=== PATIENT | female | born 1985 | race Hispanic/Latino ===

== ENCOUNTER 2018-09-01 12:27 | Inpatient (IN) | payer OTHER ==
[2018-09-01 14:09] LABS: Hematocrit 33.5 % (30.3-42.9); Hemoglobin 11.8 gm/dl (10.1-14.3); Mean Corpuscular HGB Conc 35 % (30-34); Mean Corpuscular Volume 90 fl (79-97); Platelet Count 252 K/mm3 (140-440); Red Blood Count 3.72 M/mm3 (3.65-5.03); Red Cell Distribution Width 14.3 % (13.2-15.2)
[2018-09-01 14:20] LABS: Alanine Aminotransferase 34 units/L (7-56); Uric Acid 4.2 mg/dL (3.5-7.6)
[2018-09-01] MEDS ORDERED: BRETHINE IVP PRN (14:33)
[2018-09-01] MEDS ORDERED: XYLOCAINE 2% INFILTRATI ONE (14:33)
[2018-09-01] MEDS ORDERED: MINERAL OIL PO PRN (14:33)
[2018-09-01] MEDS ORDERED: BRETHINE SUB-Q PRN (14:33)
[2018-09-01] MEDS ORDERED: STADOL IV PRN (14:33)
[2018-09-01] MEDS ORDERED: NARCAN 0.4 MG/1 ML IV PRN (14:33)
[2018-09-01] MEDS ORDERED: ZOFRAN IV PRN (14:33)
--- NOTE | 2018-09-01 14:37 | History and Physical Report ---
History of Present Illness Date of examination: 09/01/18 Date of admission: 09/01/18 12:27 Chief complaint: Induction of labor History of present illness: Pt is a 33yo WF EDC 09/06/18; EGA 39 2/7 weeks presents from [facility] for induction of labor due to elevated BPs' and Oligohydramnios. She received care at [facility] since 10 weeks and co-managed by [facility] for Bipolar disorder. records are available and GBS is Negative. Past History Past Medical History: other (Bipolar disorder) Past Surgical History: no surgical history [employer] History: abnormal PAP smear Family/Genetic History: none Social history: no significant social history, - Obstetrical History Expected Date of Delivery: 09/06/18 Actual Gestation: 39 Week(s) 2 Day(s) : 2 Medications and Allergies Allergies Allergy/AdvReac Type Severity Reaction Status Date / Time Penicillins Allergy Hives Verified 09/01/18 13:06 sulfacetamide Allergy Itching Verified 09/01/18 13:07 [From Sulfamide] Home Medications Medication Instructions Recorded Confirmed Last Taken Type Pnv Plus Multivit Tab 1 tab PO DAILY 09/01/18 09/01/18 08/31/18 History 1 Review of Systems All systems: negative - Vital Signs Vital signs: Vital Signs Temp 97.6 F 09/01/18 13:54 Temp Pulse Resp BP Pulse Ox 97.6 F 09/01/18 13:54 - Physical Exam Cardiovascular: Regular rate Lungs: Positive: Clear to auscultation Abdomen: Positive: normal appearance Genitourinary (Female): Positive: normal external genitalia Vagina: Positive: normal moisture Uterus: Positive: enlarged Extremities: Positive: normal - Obstetrical FHR: category 1 Uterine Contraction Monitor Mode: External Cervical Dilatation: 0.5 (per nurse) Cervical Effacement Percentage: 50 (per nurse) Uterine Contraction Pattern: Irregular Results Result Diagrams: 09/01/18 13:37 09/01/18 13:37 Abnormal lab results 09/01/18 09/01/18 Range/Units 13:37 13:37 MCHC 35 H (30-34) % Creatinine 0.4 L (0.7-1.2) mg/dL Lactate Dehydrogenase 228 H (91-180) units/L All other labs normal. Ultrasound: report reviewed Assessment and Plan - Patient Problems (1) 39 weeks gestation of Onset Date: 09/01/18 Current Visit: Yes Status: Acute Plan to address problem: A: IUP @ 39 2/7 weeks Gestational hypertension Oligohydramnios Bipolar disorder P: Admit to L&D for cervidil/pitocin induction of labor Obtain PIH labs (2) Oligohydramnios Onset Date: 09/01/18 Current Visit: Yes Status: Acute Qualifiers: Fetus number: single or unspecified fetus Trimester: third trimester Qualified Code(s): O41.03X0 - Oligohydramnios, third trimester, not applicable or unspecified (3) Bipolar 1 disorder Onset Date: 09/01/18 Current Visit: Yes Status: Acute
[2018-09-01 14:53] LABS: Bilirubin,Urine NEG (Negative); Blood,Urine SM (Negative); Color,Urine Amber (Yellow); Mucus,Urine 1+ /HPF
[2018-09-01] MEDS ORDERED: PITOCin/NS 30 UNIT/500ML 30 UNITS/500 ML BAG IV SCH (15:00)
[2018-09-01] MEDS ORDERED: PITOCin/NS 20 UNIT/1000ML DRIP 20 UNITS/1,000 ML BAG IV SCH (15:00)
[2018-09-01] MEDS ORDERED: CERVIDIL VG ONE (15:33)
[2018-09-01] MEDS: LACTATED RINGERS 1,000 ML IV SCH (17:06)
[2018-09-01] MEDS ORDERED: TYLENOL PO ONE (20:43)
[2018-09-01] MEDS ORDERED: AMBIEN PO PRN (22:00)
[2018-09-02] MEDS ORDERED: CERVIDIL VG ONE (03:09)
[2018-09-02] MEDS: LACTATED RINGERS 1,000 ML IV SCH (05:46)
[2018-09-02] MEDS: SUBLIMAZE IV PRN ×5 (09:30→18:11)
--- NOTE | 2018-09-02 09:52 | Progress Note ---
Assessment and Plan - Patient Problems (1) 39 weeks gestation of Onset Date: 09/01/18 Current Visit: Yes Status: Acute Plan to address problem: A: IUP @ 39 3/7 weeks Gestational hypertension Oligohydramnios Bipolar disorder P: Will continue with cervidil/pitocin induction of labor Expectant vaginal delivery (2) Oligohydramnios Onset Date: 09/01/18 Current Visit: Yes Status: Acute Qualifiers: Fetus number: single or unspecified fetus Trimester: third trimester Qualified Code(s): O41.03X0 - Oligohydramnios, third trimester, not applicable or unspecified (3) Bipolar 1 disorder Onset Date: 09/01/18 Current Visit: Yes Status: Acute Subjective - Subjective Date of service: 09/02/18 Principal diagnosis: IUP @ 39 3/7 weeks; Oligohydramnios Interval history: Pt is a 33yo WF EDC 09/06/18; EGA 39 3/7 weeks presents from [facility] for induction of labor due to elevated BPs' and Oligohydramnios. She received care at [facility] since 10 weeks and co-managed by [facility] for Bipolar disorder. She received cervidil last night and currently theresa q 3-5 mins. Patient reports: movement normal, contractions, no new complaints, no loss of fluid, no vaginal bleeding Objective - Vital Signs Vital Signs: Vital Signs - 12hr 09/01/18 09/01/18 09/01/18 22:20 23:19 23:20 Temperature Pulse Rate 85 85 85 Respiratory Rate Blood Pressure 158/79 173/98 Blood Pressure 173/98 [Right] 09/02/18 09/02/18 09/02/18 01:19 02:33 03:37 Temperature Pulse Rate 89 81 Respiratory 18 Rate Blood Pressure 179/92 149/79 Blood Pressure [Right] 09/02/18 09/02/18 09/02/18 03:57 04:07 05:36 Temperature Pulse Rate 87 77 Respiratory 16 Rate Blood Pressure 142/84 169/95 Blood Pressure [Right] 09/02/18 09/02/18 09/02/18 07:37 08:41 09:29 Temperature 98.6 F Pulse Rate 78 72 Respiratory 16 Rate Blood Pressure 135/65 146/84 Blood Pressure [Right] 09/02/18 09:30 Temperature Pulse Rate Respiratory 18 Rate Blood Pressure Blood Pressure [Right] - Exam Uterus: Present: normal FHR: category 1 Uterine Contraction Monitor Mode: External Cervical Dilatation: 2.5 (per nurse) Cervical Effacement Percentage: 50 (per nurse) Uterine Contraction Pattern: Regular Uterine Tone Measurement Phase: Contraction Uterine Contraction Intensity: Mild - Labs Labs: Abnormal Labs 09/01/18 09/01/18 09/01/18 13:00 13:37 13:37 MCHC 35 H Creatinine 0.4 L Lactate Dehydrogenase 228 H Ur Specific [place] 1.036 H Urine WBC (Auto) 8.0 H Laboratory Results - last 24 hr 09/01/18 09/01/18 09/01/18 13:00 13:37 13:37 WBC 8.7 RBC 3.72 Hgb 11.8 Hct 33.5 MCV 90 MCH 32 MCHC 35 H RDW 14.3 Plt Count 252 Creatinine 0.4 L Estimated GFR > 60 Uric Acid 4.2 AST 39 ALT 34 Lactate Dehydrogenase 228 H Urine Color Loni Urine Turbidity Clear Urine pH 5.0 Ur Specific [place] 1.036 H Urine Protein 30 mg/dl Urine Glucose (UA) Neg Urine Ketones Neg Urine Blood Sm Urine Nitrite Neg Urine Bilirubin Neg Urine Urobilinogen 4.0 Ur Leukocyte Esterase Neg Urine WBC (Auto) 8.0 H Urine RBC (Auto) 9.0 U Epithel Cells (Auto) 7.0 Urine Mucus 1+ Blood Type Antibody Screen 09/01/18 13:37 WBC RBC Hgb Hct MCV MCH MCHC RDW Plt Count Creatinine Estimated GFR Uric Acid AST ALT Lactate Dehydrogenase Urine Color Urine Turbidity Urine pH Ur Specific [place] Urine Protein Urine Glucose (UA) Urine Ketones Urine Blood Urine Nitrite Urine Bilirubin Urine Urobilinogen Ur Leukocyte Esterase Urine WBC (Auto) Urine RBC (Auto) U Epithel Cells (Auto) Urine Mucus Blood Type A POSITIVE Antibody Screen Negative
[2018-09-02] MEDS ORDERED: TYLENOL PO PRN ×2 (10:00→22:18)
[2018-09-02] MEDS ORDERED: NARCAN 2 MG/2 ML IV PRN (19:41)
--- NOTE | 2018-09-02 19:43 | Anesthesia Consultation ---
Anesthesia Consult and Med Hx - Airway Anesthetic Teeth Evaluation: Good ROM Head & Neck: Adequate Mental/Hyoid Distance: Adequate Mallampati Class: Class II Intubation Access Assessment: Probably Good - Pulmonary Exam CTA: Yes - Cardiac Exam Cardiac Exam: RRR - Pre-Operative Health Status ASA Pre-Surgery Classification: ASA2 Proposed Anesthetic Plan: Epidural - Pulmonary Hx Asthma: Yes - Cardiovascular System Hx Hypertension: No - Central Nervous System Hx Seizures: No Hx Psychiatric Problems: No - Endocrine Hx Renal Disease: No Hx Hypothyroidism: No Hx Hyperthyroidism: No - Hematic Hx Anemia: No Hx Sickle Cell Disease: No - Other Systems Hx Alcohol Use: No
--- NOTE | 2018-09-02 19:43 | Anesthesia Day of Surgery ---
Anesthesia Day of Surgery - Day of Surgery Patient Examined: Yes Patient H&P Reviewed: Yes Patient is NPO: Yes Beta Blockers: No Cardiac Clearance: No Pulmonary Clearance: No Ozzie's Test: N/A
[2018-09-02] MEDS ORDERED: MARCAINE 0.25% INFILTRATI ONE (19:46)
[2018-09-02] MEDS ORDERED: fentaNYL-BUPIV 2 MCG/ML-0.125% 200 MCG/100 ML BAG EPIDURAL SCH (20:00)
[2018-09-02] MEDS ORDERED: DULCOLAX PR PRN (22:18)
[2018-09-02] MEDS ORDERED: ZOFRAN IV PRN (22:18)
[2018-09-02] MEDS ORDERED: LANSINOH TP PRN (22:18)
[2018-09-02] MEDS ORDERED: MILK OF MAGNESIA PO PRN (22:18)
[2018-09-02] MEDS ORDERED: PHENERGAN PO PRN (22:18)
[2018-09-02] MEDS ORDERED: PHENERGAN PR PRN (22:18)
[2018-09-02] MEDS ORDERED: BENADRYL PO PRN (22:18)
[2018-09-02] MEDS ORDERED: TUCKS PAD TP PRN (22:18)
--- NOTE | 2018-09-02 22:18 | Procedure Note ---
OB Delivery Note - Delivery Date of Delivery: 09/02/18 Surgeon: PAVAN MCCRACKEN Estimated blood loss: 100cc - Vaginal Delivery presentation: vertex Delivery position: OA Intrapartum events: PROM->1hr before delivery, meconium Delivery induction: cervidil Delivery augmentation: rupture of membranes, pitocin Delivery monitor: external FHT, external uterine Route of delivery: Delivery placenta: spontaneous Delivery cord: 3 umbilical vessels Episiotomy: none Delivery laceration: none Anesthesia: epidural Delivery comments: delivered OA and placed on Mom's chest for [id number] bonding and delayed cord clamping, cut by Dad - A at 1 minute: 8 at 5 minutes: 9 Infant Gender: Male (2680gms)
--- NOTE | 2018-09-02 22:31 | Post Anesthesia Evaluation ---
- Post Anesthesia Evaluation Patient Participated: Yes Airway Patent: Yes Stable Respiratory Function: Yes Nausea/Vomiting: No Temp > 96.8F: No Pain Manageable: Yes Adequeate Hydration: Yes Anesthesia Complications: No Block Receding Appropriately: Yes Patient on Ventilator: No
[2018-09-02] MEDS ORDERED: SODIUM CHLORIDE FLUSH SYRINGE 10 ML IV PRN (23:00)
[2018-09-02] MEDS ORDERED: PITOCin/NS 20 UNIT/1000ML DRIP 20 UNITS/1,000 ML BAG IV SCH (23:00)
[2018-09-03] MEDS: NORCO 5/325 PO PRN ×2 (01:10→06:48)
[2018-09-03] MEDS: IBUPROFEN PO SCH ×5 (01:14→23:30)
--- NOTE | 2018-09-03 08:57 | Progress Note ---
Assessment and Plan - Patient Problems (1) 39 weeks gestation of Onset Date: 09/01/18 Current Visit: Yes Status: Resolved (2) Oligohydramnios Onset Date: 09/01/18 Current Visit: Yes Status: Resolved Qualifiers: Fetus number: single or unspecified fetus Trimester: third trimester Qualified Code(s): O41.03X0 - Oligohydramnios, third trimester, not applicable or unspecified (3) Bipolar 1 disorder Onset Date: 09/01/18 Current Visit: Yes Status: Chronic (4) (normal spontaneous vaginal delivery) Onset Date: 09/03/18 Current Visit: Yes Status: Resolved Plan to address problem: A: S/P - PPD #1 Doing well Asymptomatic anemia - stable P: May go home tomorrow. (5) Acute blood loss anemia Onset Date: 09/03/18 Current Visit: Yes Status: Resolved Subjective - Subjective Date of service: 09/03/18 Principal diagnosis: s/p - PPD #1 Interval history: Pt is feeling well without complaints. Bleeding improved. Patient reports: appetite normal, voiding normally, pain well controlled, flatus, ambulating normally, no dizzy ambulation, no nauseated : doing well, bottle feeding Objective - Vital Signs Latest vital signs: Vital Signs Temp Pulse Resp BP BP Pulse Ox 09/03/18 07:49 20 09/03/18 05:48 98.2 F 89 20 132/74 96 09/03/18 00:50 98.0 F 09/03/18 00:45 125 H 142/73 98 09/02/18 22:50 96 H 168/80 09/02/18 22:26 87 147/76 09/02/18 21:41 86 137/93 09/02/18 21:26 83 125/72 09/02/18 21:11 46 L 80 L 09/02/18 21:10 80 L 09/02/18 21:04 95 H 95 09/02/18 20:59 69 100 09/02/18 20:55 77 94 09/02/18 20:54 69 98 09/02/18 20:49 89 99 09/02/18 20:44 68 99 09/02/18 20:41 72 107/49 09/02/18 20:39 93 H 98 09/02/18 20:34 75 99 09/02/18 20:29 98 H 98 09/02/18 20:27 89 108/68 09/02/18 20:24 64 96 09/02/18 20:19 90 97 09/02/18 20:17 83 111/57 09/02/18 20:14 93 H 93 09/02/18 20:11 77 83/49 09/02/18 20:09 80 94 09/02/18 20:08 73 87/51 09/02/18 20:05 76 94/50 09/02/18 20:04 85 92 09/02/18 20:03 86 109/64 09/02/18 20:02 82 92 09/02/18 19:59 60 93 09/02/18 19:57 94 H 143/88 09/02/18 19:56 79 92 09/02/18 19:54 101 H 97 09/02/18 19:49 110 H 97 09/02/18 19:44 107 H 97 09/02/18 19:29 110 H 139/93 09/02/18 17:40 136/74 09/02/18 17:00 97.8 F 18 09/02/18 11:38 82 147/77 09/02/18 11:35 97.2 F L 09/02/18 09:30 18 09/02/18 09:29 72 146/84 Intake and Output 09/02/18 09/03/18 09/03/18 22:59 06:59 14:59 Intake Total 480 Output Total 200 1000 Balance -200 -520 Intake: Oral 480 Output: Urine 200 1000 Uretheral (Mazariegos) 200 Void 1000 Other: Total, Intake Amount 240 Total, Output Amount 300 # Voids Void 3 Estimated Blood Loss 200 - Exam Abdomen: Present: normal appearance, soft Uterus: Present: normal, firm, fundal height below umbilicus Extremities: Present: normal - Labs Labs: Laboratory Tests 09/01/18 09/01/18 09/01/18 13:00 13:37 13:37 WBC 8.7 RBC 3.72 Hgb 11.8 Hct 33.5 MCV 90 MCH 32 MCHC 35 H RDW 14.3 Plt Count 252 Creatinine 0.4 L Estimated GFR > 60 Uric Acid 4.2 AST 39 ALT 34 Lactate Dehydrogenase 228 H Urine Color Loni Urine Turbidity Clear Urine pH 5.0 Ur Specific [place] 1.036 H Urine Protein 30 mg/dl Urine Glucose (UA) Neg Urine Ketones Neg Urine Blood Sm Urine Nitrite Neg Urine Bilirubin Neg Urine Urobilinogen 4.0 Ur Leukocyte Esterase Neg Urine WBC (Auto) 8.0 H Urine RBC (Auto) 9.0 U Epithel Cells (Auto) 7.0 Urine Mucus 1+ RPR Blood Type Antibody Screen 09/01/18 09/01/18 09/03/18 13:37 18:00 10:31 WBC RBC Hgb 8.2 L D Hct 24.0 L D MCV MCH MCHC RDW Plt Count Creatinine Estimated GFR Uric Acid AST ALT Lactate Dehydrogenase Urine Color Urine Turbidity Urine pH Ur Specific [place] Urine Protein Urine Glucose (UA) Urine Ketones Urine Blood Urine Nitrite Urine Bilirubin Urine Urobilinogen Ur Leukocyte Esterase Urine WBC (Auto) Urine RBC (Auto) U Epithel Cells (Auto) Urine Mucus RPR Nonreactive Blood Type A POSITIVE Antibody Screen Negative
--- NOTE | 2018-09-03 09:13 | Discharge Summary ---
Providers - Providers Date of Admission: 09/01/18 12:27 Date of discharge: 09/04/18 Attending physician: PAVAN MCCRACKEN Primary care physician: PAVAN MCCRACKEN Hospitalization Reason for admission: induction of labor, IUP at term, other (Oligohydramnios) Delivery: Episiotomy: none Laceration: none Other procedures: none complications: none Discharge diagnosis: IUP at term delivered [place] baby: male Hospital course: Unremarkable. Condition at discharge: Good Disposition: DC-01 TO HOME OR SELFCARE - Discharge Diagnoses (1) 39 weeks gestation of Status: Resolved (2) Oligohydramnios Status: Resolved Qualifiers: Fetus number: single or unspecified fetus Trimester: third trimester Qualified Code(s): O41.03X0 - Oligohydramnios, third trimester, not applicable or unspecified (3) Bipolar 1 disorder Status: Chronic (4) (normal spontaneous vaginal delivery) Status: Resolved Plan - Discharge Medications Prescriptions: Ferrous Sulfate [Feosol 325 MG tab] 325 mg PO BID #60 tablet Ibuprofen [Motrin 600 MG tab] 600 mg PO Q6HR #30 tablet Vit-Fe Fumar-FA [ Vitamin] 1 each PO QDAY #30 tablet - Provider Discharge Summary Activity: routine, no sex for 6 weeks, no heavy lifting 4 weeks, no strenuous exercise Diet: routine Instructions: routine Additional instructions: [] Smoking cessation referral if applicable(refer to patient education folder for contact #) [] Refer to [facility]'s [facility] Booklet Call your doctor immediately for: * Fever > 100.5 * Heavy vaginal bleeding ( >1 pad per hour) * Severe persistent headache * Shortness of breath * Reddened, hot, painful area to leg or breast * Drainage or odor from incision. * Keep incision clean and dry at all times and follow doctor's instructions regarding bathing/showering - Follow up plan Follow up: PAVAN MCCRACKEN MD [Primary Care Provider] - 6 Weeks DANIEL ACE NP [Referring] - 6 Weeks
[2018-09-03] MEDS: COLACE PO SCH ×2 (09:40→22:18)
[2018-09-03] MEDS: FEOSOL PO SCH ×2 (09:40→22:18)
[2018-09-03] MEDS ORDERED: PRENATAL VITAMIN PO SCH (10:00)
[2018-09-03 10:45] LABS: Hemoglobin 8.2 gm/dl (10.1-14.3)
[2018-09-03] MEDS ORDERED: M-M-R II VACCINE SUB-Q ONE (22:18)
[2018-09-04] MEDS: IBUPROFEN PO SCH (05:23)
[2018-09-04] MEDS ORDERED: BOOSTRIX IM ONE (06:00)
[2018-09-04 06:47] VITALS: BP 144/84
== END 2018-09-04 11:30 | disposition home or self-care (01) | DRG 774 ==
LOC: LD 12:27 → OB 09-03 00:53
PROVIDERS: ADMIT Obstetrics & Gynecology; ATTEND Obstetrics & Gynecology
PROC: 10E0XZZ Delivery of Products of Conception, External Approach (ICD-10-PCS; principal; 2018-09-02)
PROC: 3E0P7VZ Introduction of Hormone into Female Reproductive, Via Natural or Artificial Opening (ICD-10-PCS; 2018-09-02)
PROC: 3E0R3BZ Introduction of Anesthetic Agent into Spinal Canal, Percutaneous Approach (ICD-10-PCS; 2018-09-02)
PROC: 00HU33Z Insertion of Infusion Device into Spinal Canal, Percutaneous Approach (ICD-10-PCS; 2018-09-02)
PROC: 3E0234Z Introduction of Serum, Toxoid and Vaccine into Muscle, Percutaneous Approach (ICD-10-PCS; 2018-09-03)
DX: O41.03X0 Oligohydramnios, third trimester, not applicable or unspecified (principal); O13.4 Gestational [pregnancy-induced] hypertension without significant proteinuria, complicating childbirth; O77.0 Labor and delivery complicated by meconium in amniotic fluid; O99.52 Diseases of the respiratory system complicating childbirth; J45.909 Unspecified asthma, uncomplicated; F31.9 Bipolar disorder, unspecified; O99.344 Other mental disorders complicating childbirth; Z88.0 Allergy status to penicillin; Z23 Encounter for immunization; Z3A.39 39 weeks gestation of pregnancy; Z37.0 Single live birth; Z88.2 Allergy status to sulfonamides; O99.02 Anemia complicating childbirth; D62 Acute posthemorrhagic anemia
CPT/HCPCS: 36415; 59200; 81001; 82565; 83615; 84450; 84460; 84550; 85014; 85018; 85027; 86592; 86850; 86900; 86901; G0378; J0595; J2590; J3010; J7120